=== PATIENT | female | born 1985 | race Caucasian/White ===

== ENCOUNTER 2016-10-25 17:28 | Outpatient (CLI) | payer MEDICAID ==
[~2016-10-25] VITALS: Ht 152.4 cm; Wt 73.0 kg
[~2016-10-25 17:28] MED LIST: CIPR500T4 PO; FER325 PO; HYDR-906 PO; ONDA4TAB8 PO; TYL500 PO
[2016-10-25 17:40] VITALS: Ht 152.4 cm; Wt 73.0 kg
[2016-10-25 17:41] VITALS: BP 122/79; PULSE 85; RESP 16
[2016-10-25] MEDS ORDERED: LACTATED RINGER'S 1,000 ML IV SCH (17:55)
[2016-10-25] MEDS ORDERED: TERBUTALINE 1 MG/ML INJ SC ONE (18:00)
[2016-10-25 20:11] LABS: ADD SCAN DIFF NO
[2016-10-25 20:16] LABS: BASOPHILS % 0.2 % (0.0-2.0); EOSINOPHILS # 0.1 10^3/ul (0.0-0.5); EOSINOPHILS % 2.1 % (0.0-7.0); HEMATOCRIT 31.1 % (37.0-47.0); HEMOGLOBIN 10.3 g/dl (12.0-16.0); LYMPHOCYTES # 2.3 10^3/ul (0.8-2.9); LYMPHOCYTES % 35.9 % (15.0-51.0); MEAN CORPUSCULAR HEMOGLOBIN 28.5 pg (29.0-33.0); MEAN CORPUSCULAR HGB CONC 33.1 g/dl (32.0-37.0); MEAN CORPUSCULAR VOLUME 85.9 fl (82.0-101.0); MEAN PLATELET VOLUME 11.8 fl (7.4-10.4); MONOCYTE # 0.4 10^3/ul (0.3-0.9); MONOCYTES % 6.7 % (0.0-11.0); NEUTROPHIL # 3.4 10^3/ul (1.6-7.5); NEUTROPHILS % 54.8 % (39.0-77.0); PLATELET COUNT 287 10^3/UL (140-415); RED BLOOD COUNT 3.62 10^6/ul (4.20-5.40); RED CELL DISTRIBUTION WIDTH 15.1 % (11.5-14.5); WHITE BLOOD COUNT 6.3 10^3/ul (4.8-10.8)
[2016-10-25 20:32] LABS: ALBUMIN/GLOBULIN RATIO 1.17; BILIRUBIN,INDIRECT 0.1 mg/dl (0-1.1); BILIRUBIN,TOTAL 0.1 mg/dl (0.2-1.3); CALCIUM 9.7 mg/dl (8.4-10.2); CREATININE 0.47 mg/dl (0.44-1.00); POTASSIUM 3.5 mmol/L (3.5-5.1); TOTAL PROTEIN 7.4 g/dl (6.1-8.1); URIC ACID 3.5 mg/dl (3.1-7.9)
--- NOTE | 2016-10-25 23:01 | PN ---
Triage Information Date/Time October 25, 2016, @ 2303. Weeks of Gestation 38w 4d : 6 Para: 4 Diabetes: none Hypertention: none Additional information Previous x 4. Pt came in reporting some cramping and lower back pain. Objective Vital Signs Date Time Temp Pulse Resp B/P Pulse Ox O2 Delivery O2 Flow Rate FiO2 10/25/16 17:41 98.2 85 16 122/79 Heart Rate: 130's Heart Rate Comments Accels to 155 bpm. No decels. Contractions: >10 Minutes Apart Exam Cx exam deferred. Pt was given IV hydration and one dose of terbulatine by Dr Metzger and her UC's spaced out significantly. Pt is very comfortable. Results/Medications Result Diagram: 10/25/16180410/25/161804 Results 24 hrs Laboratory Tests Test 10/25/16 18:05 White Blood Count 6.3 # Red Blood Count 3.62 #L Hemoglobin 10.3 #L Hematocrit 31.1 #L Mean Corpuscular Volume 85.9 Mean Corpuscular Hemoglobin 28.5 L Mean Corpuscular Hemoglobin Concent 33.1 Red Cell Distribution Width 15.1 H Platelet Count 287 Mean Platelet Volume 11.8 #H Neutrophils % 54.8 Lymphocytes % 35.9 Monocytes % 6.7 Eosinophils % 2.1 Basophils % 0.2 Nucleated Red Blood Cells % 0.0 Neutrophils # 3.4 Lymphocytes # 2.3 Monocytes # 0.4 Eosinophils # 0.1 Basophils # 0.0 Nucleated Red Blood Cells # 0.0 Sodium Level 138 Potassium Level 3.5 Chloride Level 109 Carbon Dioxide Level 18 L Anion Gap 15 Blood Urea Nitrogen 7 Creatinine 0.47 Glucose Level 84 Uric Acid 3.5 Calcium Level 9.7 Total Bilirubin 0.1 L Direct Bilirubin 0.00 Indirect Bilirubin 0.1 Aspartate Amino Transf (AST/SGOT) 21 Alanine Aminotransferase (ALT/SGPT) 17 Alkaline Phosphatase 192 H Total Protein 7.4 Albumin 4.0 Globulin 3.40 H Albumin/Globulin Ratio 1.17 Medications Current Medications Lactated Ringer's (Lr) 1,000 ml @ 125 mls/hr Q8H IV Last administered on t 18:08; Admin Dose 125 MLS/HR; Start 10/25/16 at 17:55 Assessment/Plan A: IUP at 34w 5d. Previous x 4. False labor. P: D/C IV and D/C home. Pt has an appt for her repeat C/S at 12:30 on 10/28. ALIDA GUZMAN MD Oct 25, 2016 23:01
== END 2016-10-25 23:04 | disposition home or self-care (01) ==
LOC: OBT 17:28 → L-D 17:28 → OBT 23:04
PROVIDERS: ATTEND Obstetrics & Gynecology
DX: O26.893 Other specified pregnancy related conditions, third trimester (principal); M54.5 Low back pain; R10.9 Unspecified abdominal pain
CPT/HCPCS: 36415; 80053; 84560; 85025; 96360; J3105; J7120; Z7500; G0463

== ENCOUNTER 2016-10-28 09:49 | Inpatient (IN) | payer MEDICAID ==
[~2016-10-28] VITALS: Ht 152.4 cm; Wt 68.6 kg
[~2016-10-28 09:49] MED LIST changes: -CIPR500T4 PO; -HYDR-906 PO; -ONDA4TAB8 PO; -TYL500 PO
[2016-10-28] MEDS ORDERED: PRENAT PO (10:29)
[2016-10-28 10:30] VITALS: BP 123/88; PULSE 88; RESP 20
[2016-10-28 10:32] VITALS: Ht 152.4 cm; Wt 68.6 kg
[2016-10-28] MEDS ORDERED: OXYTOCIN 30 UNITS/LR 500 ML IV PRN ×2 (11:00→17:30)
[2016-10-28] MEDS ORDERED: LACTATED RINGER'S 1,000 ML IV PRN (11:00)
[2016-10-28] MEDS ORDERED: METHYLERGONOVINE 0.2 MG INJ IM PRN ×2 (11:00→17:30)
[2016-10-28] MEDS ORDERED: LACTATED RINGER'S 1,000 ML IV ONE (11:00)
[2016-10-28] MEDS ORDERED: CARBOPROST 250 MCG INJ IM PRN ×2 (11:00→17:30)
[2016-10-28] MEDS ORDERED: MISOPROSTOL 200 MCG TAB PR PRN ×2 (11:00→17:30)
[2016-10-28 11:14] LABS: ADD SCAN DIFF NO
[2016-10-28 11:15] LABS: BASOPHILS % 0.3 % (0.0-2.0); EOSINOPHILS # 0.1 10^3/ul (0.0-0.5); LYMPHOCYTES # 2.2 10^3/ul (0.8-2.9); LYMPHOCYTES % 30.8 % (15.0-51.0); MEAN CORPUSCULAR HEMOGLOBIN 28.6 pg (29.0-33.0); MEAN CORPUSCULAR HGB CONC 33.3 g/dl (32.0-37.0); MEAN CORPUSCULAR VOLUME 85.7 fl (82.0-101.0); MEAN PLATELET VOLUME 11.6 fl (7.4-10.4); MONOCYTE # 0.5 10^3/ul (0.3-0.9); NEUTROPHIL # 4.2 10^3/ul (1.6-7.5); NEUTROPHILS % 60.6 % (39.0-77.0); PLATELET COUNT 272 10^3/UL (140-415); RED CELL DISTRIBUTION WIDTH 15.6 % (11.5-14.5)
[2016-10-28 11:42] LABS: INR 0.94; PROTIME 12.6 Sec (12.2-14.2)
[2016-10-28 11:43] LABS: PARTIAL THROMBOPLASTIN TIME 26.5 Sec (25.0-35.0)
[2016-10-28] MEDS ORDERED: OXYTOCIN 10 UNIT INJ ONE ×2 (12:59→14:09)
[2016-10-28] MEDS ORDERED: ONDANSETRON 4 MG INJ ONE (12:59)
[2016-10-28] MEDS ORDERED: PHENYLephrine (100 MCG/ML) 5ML SYG ONE ×2 (12:59→14:06)
[2016-10-28] MEDS ORDERED: morphine SULFATE/PF (10 MG/10 ML) INJ ONE (12:59)
[2016-10-28] MEDS: CEFAZOLIN 2 GM/50 ML (PMX) 50 ML IV SCH ×2 (13:10→13:55)
[2016-10-28] MEDS ORDERED: MIDAZOLAM 1 MG/ML 2 ML INJ ONE (13:43)
[2016-10-28] MEDS ORDERED: FENTAnyl 50 MCG/ML VIAL ONE (14:37)
[2016-10-28] MEDS ORDERED: DIPHENHYDRAMINE 50 MG INJ ONE (14:50)
[2016-10-28] MEDS ORDERED: KETOROLAC 30 MG INJ ONE (15:52)
[2016-10-28] MEDS: KETOROLAC 30 MG INJ IV PRN ×2 (15:55→23:40)
[2016-10-28] MEDS ORDERED: DIPHENHYDRAMINE 50 MG INJ IV PRN (16:00)
[2016-10-28] MEDS ORDERED: ONDANSETRON 4 MG INJ IV PRN (16:00)
[2016-10-28] MEDS ORDERED: NALOXONE (0.4 MG/ML) INJ IV PRN (16:00)
[2016-10-28] MEDS: morphine 2 MG INJ IV PRN ×2 (16:26→19:04)
[2016-10-28] MEDS: OXYTOCIN 30 UNITS/LR 500 ML IV SCH ×2 (17:02→20:36)
--- NOTE | 2016-10-28 17:07 | HP ---
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 Allergies allergic to penicillin Social habit denies a smoking drinking or using illicit drugs Review of system within normal Physical examination 5 feet 151 pound total weight gain during the 18 pounds Temperature 98.4 pulse 85 respirations 16 blood pressure 121/85 Head ears nose and throat negative Neck supple no thyromegaly Lungs clear to P&A Heart normal sinus rhythm no murmur Abdomen fundal height 37 cm from symphysis pubis heart category 1 Pelvic examination deferred Extremities no edema no varicose Impression Intrauterine at 39 weeks and 6 days history of 4 previous section request for bilateral tubal ligation, patient has been counseled regarding failure rate of tubal ligation increased risk of ectopic future failure to conceive also the complication of surgery including but not limited to bowel and bladder injury infection hemorrhage wound infection hematoma and she is willing to go ahead with the procedure Chief Complaint: 39 weeks 6 days for previous request for tubal ligation Estimated Due Date: Oct 29, 2016 : 6 Para: 4 Spontaneous : 1 Care: Good Care Ultrasounds: Normal mid trimester US Obstetrical Complications: None Medical Complications: None Past Family/Social History * Past Medical, Surgical, Family and Obstetric Histories reviewed from chart. Rubella: immune RPR/VDRL: Negative GBS Status: Negative OB Admission Exam Vital Signs Vital Signs Vital Signs Date Time Temp Pulse Resp B/P Pulse Ox O2 Delivery O2 Flow Rate FiO2 10/28/16 10:30 98.4 88 20 123/88 Room Air Physical Exam HEENT: WNL Heart: Rhythm Normal Lungs: Clear, Equal Abdomen: WNL Extremities: Normal Reflexes: Normal Cervical Dilatation: None Effacement: 0% Heart Rate: 130's Accelerations: Accelerations Present Decelerations: No Decelerations Last 72 hours Lab Results CBC & BMP 10/28/16 10:45 DON OLSON MD Oct 28, 2016 17:07
[2016-10-28 17:15] VITALS: BP 116/71; PULSE 80; RESP 18
[2016-10-28] MEDS ORDERED: CEFAZOLIN 1 GM/50 ML (PMX) 50 ML IVPB SCH (17:30)
[2016-10-28] MEDS ORDERED: LANOLIN 7 GM TUBE TOP PRN (17:30)
[2016-10-28] MEDS ORDERED: ACETAMINOPHEN/CODEINE #3 TAB PO PRN (17:30)
[2016-10-28] MEDS ORDERED: OXYCODONE/ACETAMINOPHEN (5/325) TAB PO PRN (17:30)
[2016-10-28 17:45] VITALS: BP 114/67; PULSE 87; RESP 18
[2016-10-28] MEDS: IBUPROFEN 600 MG TAB PO SCH (18:00)
[2016-10-28 19:30] VITALS: BP 110/64; PULSE 76; RESP 19
[2016-10-28] MEDS: SENNA/DOCUSATE NA (8.6MG/50MG) TAB PO SCH (22:18)
--- NOTE | 2016-10-28 23:38 | OPR ---
DATE OF OPERATION: 10/28/2016 PREOPERATIVE DIAGNOSES: 1. Intrauterine at 39 weeks and 6 days. 2. History of 4 previous sections. 3. Request for voluntary sterilization, bilateral tubal ligation. POSTOPERATIVE DIAGNOSES: 1. Intrauterine at 39 weeks and 6 days. 2. History of 4 previous sections. 3. Request for voluntary sterilization, bilateral tubal ligation. OPERATION PERFORMED: Repeat transverse low cervical section for the 5th time, bilateral tu bal ligation. SURGEON: Don Metzger MD [employer] OPERATOR: Aamir Conner MD ANESTHESIA: Spinal. ANESTHESIOLOGIST: Dr. Hampton. FINDINGS: Live baby boy, 8 and 9. Baby weighed 4205 grams, equal to 9 pounds 4 ounces. DETAILS OF THE PROCEDURE: Under satisfactory spinal anesthesia, the patient was prepped and draped and placed in supine position, tilted to the left. Pfannenstiel incision was made, carried through the subcutaneous tissue. Bleeders brought under control with electrocautery. Fascia incised to the length of the incision. Rectus muscle divided in midline. Peritoneum exposed. Upon entry into th e abdomen, there was a tremendous amount of adhesions, which were taken down by the sharp and blunt dissection. The adhesions were between the anterior abdominal wall and the anterior surface of the uterus. Finally, the lower segment of the uterus was freed from the adhesions. Bladder flap was de veloped. Transverse incision was made in the lower segment of the uterus. Amniotic sac ruptured. Clear amniotic fluid noted. Live baby boy was delivered from occiput posterior. Nasal oropharyngea l suction was performed. Baby handed to the team for immediate attention. The patient rec eived 20 units of Pitocin. Placenta delivered manually intact. Uterine cavity cleaned with wet spo nge and drainage established. Uterus closed in 2 layers using Monocryl #1 in continuous fashion. B ilateral tubal ligation performed by identifying the ampulla and fimbriae of the right fallopian tub e, which was grasped by a Artis. Suture material used #0 plain catgut was reinforced with the monty e suture material. That portion of the tube was excised and the cut end of the tube was cauterized and the specimen submitted for the pathology. The same procedure performed for the opposite side. Peritoneal cavity irrigated with warm saline. Sponge, needle, and instrument reported to be correct . Abdominal peritoneum closed with 2-0 chromic catgut continuously. Rectus muscle approximated wit h 2 interrupted 2-0 chromic catgut. Fascia closed with #1 PDS in a continuous fashion. Subcutaneou s tissue approximated with 2-0 chromic catgut. Skin closed with aaliyah. Estimated blood loss 600 mL. Urine bag contained 200 mL of clear urine. The patient tolerated procedure well, transferred t o recovery room in a good condition. Dictated By: DON LOZANO/JOSÉ ANTONIO Conf#: [id number] DID#: [id number]
[2016-10-28 23:40] VITALS: BP 105/61; PULSE 81; RESP 18
[2016-10-29] MEDS: OXYTOCIN 30 UNITS/LR 500 ML IV SCH ×3 (01:10→09:20)
[2016-10-29 04:15] VITALS: BP 100/52; PULSE 85; RESP 19
[2016-10-29] MEDS: morphine 2 MG INJ IV PRN ×2 (05:20→12:48)
[2016-10-29] MEDS: IBUPROFEN 600 MG TAB PO SCH ×5 (05:22→23:45)
[2016-10-29 07:45] LABS: ADD SCAN DIFF NO
[2016-10-29 07:53] LABS: BASOPHILS % 0.1 % (0.0-2.0); EOSINOPHILS # 0.1 10^3/ul (0.0-0.5); EOSINOPHILS % 0.7 % (0.0-7.0); HEMOGLOBIN 7.5 g/dl (12.0-16.0); LYMPHOCYTES # 2.3 10^3/ul (0.8-2.9); LYMPHOCYTES % 28.6 % (15.0-51.0); MEAN CORPUSCULAR HEMOGLOBIN 28.2 pg (29.0-33.0); MEAN CORPUSCULAR HGB CONC 32.6 g/dl (32.0-37.0); MEAN CORPUSCULAR VOLUME 86.5 fl (82.0-101.0); MEAN PLATELET VOLUME 11.1 fl (7.4-10.4); MONOCYTE # 0.5 10^3/ul (0.3-0.9); MONOCYTES % 5.6 % (0.0-11.0); NEUTROPHIL # 5.3 10^3/ul (1.6-7.5); NEUTROPHILS % 64.5 % (39.0-77.0); PLATELET COUNT 198 10^3/UL (140-415); RED BLOOD COUNT 2.66 10^6/ul (4.20-5.40); RED CELL DISTRIBUTION WIDTH 15.3 % (11.5-14.5); WHITE BLOOD COUNT 8.2 10^3/ul (4.8-10.8)
[2016-10-29 08:34] VITALS: BP 105/61; PULSE 86; RESP 16
[2016-10-29] MEDS: SENNA/DOCUSATE NA (8.6MG/50MG) TAB PO SCH ×2 (09:00→20:12)
[2016-10-29] MEDS: KETOROLAC 30 MG INJ IV PRN (09:18)
[2016-10-29 11:50] VITALS: BP 107/64; PULSE 82; RESP 17
--- NOTE | 2016-10-29 12:28 | PN ---
Date/Time of Note Date/Time of Note DATE: 10/29/16 TIME: 12:26 OB Subjective Subjective Subjective Post day 1 Afebrile vital signs stable abdomen soft bowel sounds present incision dry uterus firm lochia moderate extremity normal DON OLSON MD Oct 29, 2016 12:28
[2016-10-29] MEDS ORDERED: CLINDAMYCIN 900 MG/D5W (PMX) 50 ML IVPB SCH ×2 (12:30)
[2016-10-29] MEDS: FERROUS SULFATE (EC) 325 MG TAB PO SCH (12:49)
[2016-10-29 16:00] VITALS: BP 117/69; PULSE 89; RESP 18
[2016-10-29] MEDS: OXYCODONE/ACETAMINOPHEN (5/325) TAB PO PRN ×2 (16:45→20:13)
[2016-10-29 20:10] VITALS: BP 95/54; PULSE 85; RESP 19
[2016-10-30 03:59] VITALS: BP 91/57; PULSE 82; RESP 18
[2016-10-30] MEDS: IBUPROFEN 600 MG TAB PO SCH ×4 (05:47→23:35)
[2016-10-30 07:37] VITALS: BP 101/66; PULSE 81; RESP 16
[2016-10-30 08:24] LABS: ADD SCAN DIFF NO
[2016-10-30 08:36] LABS: BASOPHILS % 0.1 % (0.0-2.0); EOSINOPHILS # 0.1 10^3/ul (0.0-0.5); EOSINOPHILS % 1.4 % (0.0-7.0); HEMATOCRIT 22.9 % (37.0-47.0); HEMOGLOBIN 7.6 g/dl (12.0-16.0); LYMPHOCYTES # 1.6 10^3/ul (0.8-2.9); LYMPHOCYTES % 18.7 % (15.0-51.0); MEAN CORPUSCULAR HEMOGLOBIN 28.6 pg (29.0-33.0); MEAN CORPUSCULAR HGB CONC 33.2 g/dl (32.0-37.0); MEAN CORPUSCULAR VOLUME 86.1 fl (82.0-101.0); MEAN PLATELET VOLUME 11.3 fl (7.4-10.4); MONOCYTE # 0.5 10^3/ul (0.3-0.9); MONOCYTES % 5.9 % (0.0-11.0); NEUTROPHIL # 6.1 10^3/ul (1.6-7.5); NEUTROPHILS % 73.5 % (39.0-77.0); PLATELET COUNT 239 10^3/UL (140-415); RED BLOOD COUNT 2.66 10^6/ul (4.20-5.40); RED CELL DISTRIBUTION WIDTH 15.7 % (11.5-14.5); WHITE BLOOD COUNT 8.3 10^3/ul (4.8-10.8)
--- NOTE | 2016-10-30 08:53 | PN ---
Date/Time of Note Date/Time of Note DATE: 10/30/16 TIME: 08:52 OB Subjective Subjective Subjective Post day 2 Afebrile vital signs stable abdomen soft incision dry good bowel sounds patient had normal bowel movement ambulation encouraged plan of a.m. discharge discussed DON OLSON MD Oct 30, 2016 08:53
[2016-10-30] MEDS: FERROUS SULFATE (EC) 325 MG TAB PO SCH (09:07)
[2016-10-30] MEDS: SENNA/DOCUSATE NA (8.6MG/50MG) TAB PO SCH ×2 (09:07→20:39)
[2016-10-30 15:44] VITALS: BP 109/78; PULSE 82; RESP 18
[2016-10-30] MEDS: ACETAMINOPHEN/CODEINE #3 TAB PO PRN ×2 (15:44→20:39)
[2016-10-30 20:00] VITALS: BP 109/74; PULSE 88; RESP 18
[2016-10-31 04:19] VITALS: BP 107/74; PULSE 77; RESP 18
[2016-10-31] MEDS: ACETAMINOPHEN/CODEINE #3 TAB PO PRN (04:19)
[2016-10-31] MEDS: IBUPROFEN 600 MG TAB PO SCH ×2 (06:42→11:43)
[2016-10-31 08:00] VITALS: BP 102/58; PULSE 80; RESP 18
[2016-10-31] MEDS: OXYCODONE/ACETAMINOPHEN (5/325) TAB PO PRN ×2 (08:16→15:21)
[2016-10-31] MEDS: SENNA/DOCUSATE NA (8.6MG/50MG) TAB PO SCH (08:16)
[2016-10-31] MEDS: FERROUS SULFATE (EC) 325 MG TAB PO SCH (08:17)
[2016-10-31] MEDS ORDERED: DIPHTH/TET/ACEL PERTUSS (ADULT) 0.5 ML VIAL IM* ONE (09:00)
--- NOTE | 2016-10-31 12:10 | PD.PPDC ---
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 Patient Condition: Good Diet Diet: Resume Regular Diet Activity/Restrictions Activity: Normal Activity May Shower Restrictions: No Exercising No Lifting No Driving No Sexual Activity Nothing in the Vagina No [place] No Tampons, douche Wound/Drain Care Instructions Wound/Drain Care Instructions: Remove Steri Strips in 1 week Follow-up Follow-up with Physician: 4, Day/Days Provider Information: Appointment clinic in 4 days to DC aaliyah post instructions given prescription of analgesic and iron supplement post wound care instructions given Referral Comment: [facility] 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
--- NOTE | 2016-10-31 12:13 | DS ---
Date/Time of Note Date/Time of Note DATE: 10/31/16 TIME: 12:11 Discharge Summary Admission/Discharge Info Admit Date/Time Oct 28, 2016 at 09:49 Discharge Date/Time October 31, 2016 at 1204 Discharge Diagnosis Post #5 with bilateral tubal ligation Patient Condition: Good Procedures Repeat bilateral tubal ligation Hx of Present Illness Term history of 4 previous section request for tubal ligation at the time of section Hospital Course Satisfactory uneventful Home Meds Reported Medications Multivit/Min/Fol Ac/Iron/Pren* ( S*) 1 Tab Tab, 1 TAB PO DAILY, TAB 10/28/16 Ferrous Sulfate* (Ferrous Sulfate*) 325 Mg Tabec, 650 MG PO DAILY, TAB 12/29/15 Discontinued Reported Medications Acetaminophen* (Tylenol*) 500 Mg Tab, 500 MG PO Q4H Y for MILD PAIN LEVEL 1-3, TAB 12/29/15 Discontinued Scripts Hydrocodone/Acetaminophen ([place] 5-325 Tablet) 1 Each Tablet, 1 TAB PO Q6H Y for PAIN, #15 TAB Prov:SHEREE BUTTS DO 12/30/15 Ciprofloxacin Hcl* (Ciprofloxacin Hcl*) 500 Mg Tablet, 500 MG PO BID for 7 Days , TAB Prov:SHEREE BUTTS DO 12/30/15 Ondansetron Hcl* (Zofran*) 4 Mg Tablet, 4 MG PO Q8H Y for NAUSEA AND/OR VOMITING , #9 TAB Prov:SHEREE BUTTS DO 12/30/15 Follow-up Plan Appointment clinic in 4 days for post check Primary Care Provider [facility] Time spent on discharge: < 30 minutes DON OLSON MD Oct 31, 2016 12:13
== END 2016-10-31 18:02 | disposition home or self-care (01) | DRG 766 ==
LOC: L-D 09:49 → PP1 17:21
PROVIDERS: ADMIT Obstetrics & Gynecology; ATTEND Obstetrics & Gynecology
PROC: 0UL70ZZ Occlusion of Bilateral Fallopian Tubes, Open Approach (ICD-10-PCS; 2016-10-28)
PROC: 10D00Z1 Extraction of Products of Conception, Low, Open Approach (ICD-10-PCS; principal; 2016-10-28 12:30)
DX: O34.211 Maternal care for low transverse scar from previous cesarean delivery (principal); Z30.2 Encounter for sterilization; Z3A.39 39 weeks gestation of pregnancy
CPT/HCPCS: 85025; 85610; 85730; 86592; 86850; 86900; 86901; 87340; 88302; 90715; 94760; 99464; J0690; J1200; J1885; J2250; J2270; J2274; J2370; J2405; J2590; J3010; J7120